=== PATIENT | female | born 1970 | race Caucasian/White ===

== ENCOUNTER 2017-12-01 17:04 | Emergency (ER) | payer BC ==
[2017-12-01] MEDS ORDERED: Sodium Chloride 0.9% 2.5 ML Syringe FLUSH PRN (17:41)
[2017-12-01] MEDS ORDERED: Ketorolac 30 MG/ML SDV IVPUSH ONE (17:41)
[2017-12-01] MEDS ORDERED: Sodium Chloride 0.9% 1,000 ML IV ONE (17:41)
[2017-12-01] MEDS ORDERED: Sodium Chloride 0.9% 10 ML Syringe FLUSH PRN (17:41)
[2017-12-01] MEDS ORDERED: Ondansetron 4 MG/2 ML SDV IVPUSH ONE (17:42)
--- NOTE | 2017-12-01 17:48 | EDM.PDOC ---
<Jesi Chaudhari - Last Filed: 12/01/17 18:50> ED HPI GENERAL MEDICAL PROBLEM - General Chief Complaint: Flank Pain Stated Complaint: POSSIBLE KIDNEY INFECTION Time Seen by Provider: 12/01/17 17:39 - History of Present Illness INITIAL COMMENTS - FREE TEXT/NARRATIVE: HISTORY AND PHYSICAL: History of present illness: The patient is a 46-year-old female who is a diabetic and has been working with Dr. Zabala at [facility] for better control of her diabetes and has a history of UTIs/kidney infections and presents with similar symptoms. She has had frequency but no dysuria or hematuria and has some right-sided flank pain which radiates to the right mid abdomen that started 48 hours ago. The patient has had chills but no fevers and nausea but no vomiting. She has had no diarrhea and denies as she has had a tubal ligation. The patient states that all these symptoms are similar to her prior urinary tract infections but she was concerned because the flank pain is somewhat new. Everything started gradually and she has not had a kidney stone in her past. She has no right lower abdominal pain and no right upper abdominal pain and has had no recent trauma. She has not taken anything today for the discomfort. Review of systems: As per history of present illness and below otherwise all systems reviewed and negative. Past medical history: As per history of present illness and as reviewed below otherwise noncontributory. Surgical history: As per history of present illness and as reviewed below otherwise noncontributory. Social history: No reported history of drug or alcohol abuse. Family history: As per history of present illness and as reviewed below otherwise noncontributory. Physical exam: General: Well-developed well-nourished female who is nontoxic and vital signs of been reviewed by me. HEENT: Atraumatic, normocephalic, negative for conjunctival pallor or scleral icterus, mucous membranes moist, throat clear, neck supple, nontender, trachea midline. Lungs: Clear to auscultation, breath sounds equal bilaterally, chest nontender. Heart: S1S2, regular rhythm slightly tachycardic rate of my evaluation, negative for clicks, rubs, or JVD. Abdomen: Soft, nondistended, nontender. On deep palpation I am unable to reproduce the pain and there is no rebound or guarding Negative for masses or hepatosplenomegaly. Negative for costovertebral tenderness. Pelvis: Stable nontender. Genitourinary: Deferred. Rectal: Deferred. Extremities: Atraumatic, negative for cords or calf pain. Neurovascular unremarkable. Neuro: Awake, alert, oriented. Cranial nerves II through XII unremarkable. Cerebellum unremarkable. Motor and sensory unremarkable throughout. Exam nonfocal. Diagnostics: UA urine culture CBC CMP lactic acid T scan of the abdomen and pelvis Therapeutics: IV fluids Zofran Toradol Patient states that after the medication she has no nausea and pain is much improved. She is aware that the UA does not indicate a UTI and that her white cell count is normal. We are currently awaiting the CMP results of but I will do a CT scan of the abdomen and pelvis to evaluate any other kidney issues kidney stones or gallbladder problems. I will endorse this case to Dr. Faust at 7 PM to follow-up these testing results and disposition the patient Repeat blood pressure is 126/70 and heart rate is 93 at the time of this last dictation to significantly improved from her presentation. Impression: Urinary frequency and right flank pain stable Definitive disposition and diagnosis as appropriate pending reevaluation and review of above. Right flank pain Pain Score (Numeric/FACES): 6 - Related Data Allergies Allergy/AdvReac Type Severity Reaction Status Date / Time No Known Allergies Allergy Verified 12/01/17 17:42 Home Meds: Home Meds Lisinopril 5 mg PO DAILY 11/13/14 [History] Sertraline [Zoloft] 100 mg PO DAILY 11/13/14 [History] amLODIPine [Norvasc] 7.5 mg PO DAILY 11/13/14 [History] atorvaSTATin [Lipitor] 20 mg PO ONETIME 11/13/14 [History] metFORMIN [Glucophage] 500 mg PO BIDMEALS 11/13/14 [History] Social & Family History - Tobacco Use Smoking Status *Q: Never Smoker Second Hand Smoke Exposure: No - Recreational Drug Use Recreational Drug Use: No ED ROS GENERAL - Review of Systems Review Of Systems: ROS reveals no pertinent complaints other than HPI. ED EXAM, GENERAL - Physical Exam Exam: See Below (See dictation) Course - Vital Signs Last Recorded V/S: Last Vital Signs Temp 98.8 F 12/01/17 17:43 Pulse 93 12/01/17 18:50 Resp 16 04/22/18 18:50 BP 126/70 12/01/17 18:50 Pulse Ox 98 12/01/17 18:50 - Orders/Labs/Meds Orders: Active Orders 24 hr Category Date Time Status Abdomen Pelvis wo Cont [CT] Stat Exams 12/01/17 18:44 Taken CULTURE URINE [RM] Stat Lab 12/01/17 17:32 Received UA W/MICROSCOPIC [URIN] Stat Lab 12/01/17 17:32 Ordered Sodium Chloride 0.9% [Saline Flush] Med 12/01/17 17:41 Active 10 ml FLUSH ASDIRECTED PRN Sodium Chloride 0.9% [Saline Flush] Med 12/01/17 17:41 Active 2.5 ml FLUSH ASDIRECTED PRN Saline Lock Insert [OM.PC] Stat Oth 12/01/17 17:41 Ordered Medication Orders Sodium Chloride (Saline Flush) 10 ml FLUSH ASDIRECTED PRN PRN Reason: Keep Vein Open Sodium Chloride (Saline Flush) 2.5 ml FLUSH ASDIRECTED PRN PRN Reason: Keep Vein Open Labs: Laboratory Tests 12/01/17 12/01/17 12/01/17 Range/Units 17:32 18:05 18:05 WBC 9.38 (4.0-11.0) K/uL RBC 4.49 (4.30-5.90) M/uL Hgb 10.8 L (12.0-16.0) g/dL Hct 33.7 L (36.0-46.0) % MCV 75.1 L (80.0-98.0) fL MCH 24.1 L (27.0-32.0) pg MCHC 32.0 (31.0-37.0) g/dL RDW Std Deviation 46.3 (28.0-62.0) fl RDW Coeff of [place]ortun[place] 17 H (11.0-15.0) % Plt Count 369 (150-400) K/uL MPV 9.30 (7.40-12.00) fL Neut % (Auto) 90.6 H (48.0-80.0) % Lymph % (Auto) 4.6 L (16.0-40.0) % [place] % (Auto) 2.9 (0.0-15.0) % Eos % (Auto) 1.8 (0.0-7.0) % Baso % (Auto) 0.1 (0.0-1.5) % Neut # (Auto) 8.5 H (1.4-5.7) K/uL Lymph # (Auto) 0.4 L (0.6-2.4) K/uL [place] # (Auto) 0.3 (0.0-0.8) K/uL Eos # (Auto) 0.2 (0.0-0.7) K/uL Baso # (Auto) 0.0 (0.0-0.1) K/uL Nucleated RBC % 0.0 /100WBC Nucleated RBCs # 0 K/uL Lactate 0.9 (0.20-2.00) mmol/L Sodium (136-145) mmol/L Potassium (3.5-5.1) mmol/L Chloride (98-107) mmol/L Carbon Dioxide (21.0-32.0) mmol/L BUN (7.0-18.0) mg/dL Creatinine (0.6-1.0) mg/dL Est Cr Clr Drug Dosing mL/min Estimated GFR (MDRD) ml/min Glucose (74-106) mg/dL Calcium (8.5-10.1) mg/dL Total Bilirubin (0.2-1.0) mg/dL AST (15-37) IU/L ALT (14-63) IU/L Alkaline Phosphatase (46-116) U/L Total Protein (6.4-8.2) g/dL Albumin (3.4-5.0) g/dL Globulin (2.0-3.5) g/dL Albumin/Globulin Ratio (1.3-2.8) Urine Color YELLOW Urine Appearance HAZY Urine pH 6.0 (5.0-8.0) Ur Specific [place] <= 1.005 (1.001-1.035) Urine Protein 30 (NEGATIVE) mg/dL Urine Glucose (UA) NEGATIVE (NEGATIVE) mg/dL Urine Ketones NEGATIVE (NEGATIVE) mg/dL Urine Occult Blood SMALL H (NEGATIVE) Urine Nitrite NEGATIVE (NEGATIVE) Urine Bilirubin NEGATIVE (NEGATIVE) Urine Urobilinogen 0.2 (<2.0) EU/dL Ur Leukocyte Esterase NEGATIVE (NEGATIVE) Urine RBC 0-2 (0-2/HPF) Urine WBC 0-2 (0-5/HPF) Ur Epithelial Cells FEW (NONE-FEW) Urine Bacteria FEW (NEGATIVE) 12/01/17 Range/Units 18:05 WBC (4.0-11.0) K/uL RBC (4.30-5.90) M/uL Hgb (12.0-16.0) g/dL Hct (36.0-46.0) % MCV (80.0-98.0) fL MCH (27.0-32.0) pg MCHC (31.0-37.0) g/dL RDW Std Deviation (28.0-62.0) fl RDW Coeff of [place] (11.0-15.0) % Plt Count (150-400) K/uL MPV (7.40-12.00) fL Neut % (Auto) (48.0-80.0) % Lymph % (Auto) (16.0-40.0) % [place] % (Auto) (0.0-15.0) % Eos % (Auto) (0.0-7.0) % Baso % (Auto) (0.0-1.5) % Neut # (Auto) (1.4-5.7) K/uL Lymph # (Auto) (0.6-2.4) K/uL [place] # (Auto) (0.0-0.8) K/uL Eos # (Auto) (0.0-0.7) K/uL Baso # (Auto) (0.0-0.1) K/uL Nucleated RBC % /100WBC Nucleated RBCs # K/uL Lactate (0.20-2.00) mmol/L Sodium 137 (136-145) mmol/L Potassium 3.3 L (3.5-5.1) mmol/L Chloride 102 (98-107) mmol/L Carbon Dioxide 21.3 (21.0-32.0) mmol/L BUN 10 (7.0-18.0) mg/dL Creatinine 0.6 (0.6-1.0) mg/dL Est Cr Clr Drug Dosing 86.53 mL/min Estimated GFR (MDRD) > 60.0 ml/min Glucose 147 H (74-106) mg/dL Calcium 8.6 (8.5-10.1) mg/dL Total Bilirubin 0.3 (0.2-1.0) mg/dL AST 15 (15-37) IU/L ALT 27 (14-63) IU/L Alkaline Phosphatase 62 (46-116) U/L Total Protein 7.8 (6.4-8.2) g/dL Albumin 3.3 L (3.4-5.0) g/dL Globulin 4.5 H (2.0-3.5) g/dL Albumin/Globulin Ratio 0.7 L (1.3-2.8) Urine Color Urine Appearance Urine pH (5.0-8.0) Ur Specific [place] (1.001-1.035) Urine Protein (NEGATIVE) mg/dL Urine Glucose (UA) (NEGATIVE) mg/dL Urine Ketones (NEGATIVE) mg/dL Urine Occult Blood (NEGATIVE) Urine Nitrite (NEGATIVE) Urine Bilirubin (NEGATIVE) Urine Urobilinogen (<2.0) EU/dL Ur Leukocyte Esterase (NEGATIVE) Urine RBC (0-2/HPF) Urine WBC (0-5/HPF) Ur Epithelial Cells (NONE-FEW) Urine Bacteria (NEGATIVE) Meds: Medications Generic Name Dose Route Start Last Admin Trade Name Freq PRN Reason Stop Dose Admin Sodium Chloride 10 ml 12/01/17 17:41 Saline Flush FLUSH ASDIRECTED PRN Keep Vein Open Sodium Chloride 2.5 ml 12/01/17 17:41 Saline Flush FLUSH ASDIRECTED PRN Keep Vein Open Discontinued Medications Generic Name Dose Route Start Last Admin Trade Name Freq PRN Reason Stop Dose Admin Sodium Chloride 1,000 mls @ 999 mls/hr 12/01/17 17:41 12/01/17 18:27 Normal Saline IV 12/01/17 18:41 999 mls/hr STAT ONE Administration Ketorolac Tromethamine 30 mg 12/01/17 17:41 12/01/17 18:33 Toradol IVPUSH 12/01/17 17:42 30 mg ONETIME ONE Administration Ondansetron HCl 4 mg 12/01/17 17:42 12/01/17 18:28 Zofran IVPUSH 12/01/17 17:43 4 mg ONETIME ONE Administration Departure - Departure Disposition: Home, Self-Care 01 Clinical Impression: UTI, Urinary tract infectious disease - Discharge Information Referrals: Olman Zabala MD [Primary Care Provider] - Forms: ED Department Discharge Additional Instructions: The following information is given to patients seen in the emergency department who are being discharged to home. This information is to outline your options for follow-up care. We provide all patients seen in our emergency department with a follow-up referral. The need for follow-up, as well as the timing and circumstances, are variable depending upon the specifics of your emergency department visit. If you don't have a primary care physician on staff, we will provide you with a referral. We always advise you to contact your personal physician following an emergency department visit to inform them of the circumstance of the visit and for follow-up with them and/or the need for any referrals to a consulting specialist. The emergency department will also refer you to a specialist when appropriate. This referral assures that you have the opportunity for follow-up care with a specialist. All of these measure are taken in an effort to provide you with optimal care, which includes your follow-up. Under all circumstances we always encourage you to contact your private physician who remains a resource for coordinating your care. When calling for follow-up care, please make the office aware that this follow-up is from your recent emergency room visit. If for any reason you are refused follow-up, please contact the [facility] emergency department at and asked to speak to the emergency department charge nurse. <Héctor Faust - Last Filed: 12/01/17 20:37> ED HPI GENERAL MEDICAL PROBLEM - History of Present Illness INITIAL COMMENTS - FREE TEXT/NARRATIVE: I've seen and examined the patient and agree with the above Following CTFor Dr. Yin in no acute findings patient does have blood in urine and right flank pain consistent with a clinical mild pyelonephritis Symptoms for the patient are consistent with previous UTI she does have hematuria and urine cultures pending I'm going to start antibiotic medicationClinically and follow the urine culture results Toradol has significantly improved pain Gen. no acute distress nontoxic appearing HEENT grossly within normal limits Chest clear CV regular abdomen soft tender on deep patella palpation on the right, no guarding or rebound kidney punch is slightly positive on the right bowel sounds present in all 4 quadrants Extremities full range of motion strength 5 out of 5 no edema [employer] alert nonfocal Diagnostics CT abdomen pelvis Lab as below Therapeutics Levaquin 500 mg by mouth now been daily #7 Impression Clinical UTI possibly mild pyelonephritis Chronic history of baseline Definitive disposition and diagnosis as appropriate pending reevaluation and review of above Departure - Departure Time of Disposition: 20:37 Condition: Good
[2017-12-01 18:44] LABS: CHLORIDE,CL 102 mmol/L (98-107); SODIUM,NA 137 mmol/L (136-145)
[2017-12-01] MEDS ORDERED: Levofloxacin 500 MG Tab PO STA (20:39)
[2017-12-01 21:02] VITALS: BP 132/76
--- NOTE | 2017-12-02 15:27 | CT ---
EXAM DATE: 12/01/17 PATIENT'S AGE: 46 Patient: NANCY DE SANTIAGO Facility: [place], [place] Site . Site : [id number] Study: CT Abdomen/Pelvis [id number] 7:56:12 PM Ordering Physician: Watson Dennison Final Report: INDICATION : Abdominal pain. TECHNIQUE : CT scan of the abdomen and pelvis. NO IV CONTRAST FINDINGS : No abdominal or pelvic mass, ascites, or adenopathy. Small hiatal hernia. Normal caliber appendix with no surrounding periappendiceal fat stranding. No obstruction. Liver, spleen, adrenal glands and pancreas unremarkable. No calcified gallstones. Kidneys are normal size and position. No renal calculi. No hydronephrosis. Bladder is unremarkable. The uterus is retroflexed and is normal in size. Lung bases are clear. No suspicious skeletal lesions. L5-S1 lumbar disc degeneration. IMPRESSION : 1. No acute findings. 2. Hiatal hernia. 3. Lumbar disc degeneration. Please note that all CT scans at this facility use dose modulation, iterative reconstruction, and/or weight-based dosing when appropriate to reduce radiation dose to as low as reasonably achievable. Dictated by Adama Mancuso MD @ Dec 01 2017 8:13PM (Electronic Signature) Report Signed by Proxy. FLOR
== END 2017-12-01 20:57 | disposition home or self-care (01) ==
LOC: MW.ED 17:04
DX: N39.0 Urinary tract infection, site not specified (principal); E11.9 Type 2 diabetes mellitus without complications; Z79.899 Other long term (current) drug therapy; Z79.84 Long term (current) use of oral hypoglycemic drugs
CPT/HCPCS: 36415; 74176; 80053; 81001; 83605; 85025; 87086; 96361; 96374; 96375; 99284; A9270; J1885; J2405; J7040

== ENCOUNTER 2018-01-04 14:06 | Emergency (ER) | payer BC ==
[2018-01-04] MEDS ORDERED: Sodium Chloride 0.9% 10 ML Syringe FLUSH PRN (14:49)
[2018-01-04] MEDS ORDERED: Sodium Chloride 0.9% 1,000 ML IV ONE (14:49)
[2018-01-04] MEDS ORDERED: Ondansetron 4 MG/2 ML SDV IVPUSH ONE (14:49)
[2018-01-04] MEDS ORDERED: Sodium Chloride 0.9% 2.5 ML Syringe FLUSH PRN (14:49)
--- NOTE | 2018-01-04 15:01 | EDM.PDOC ---
ED HPI GENERAL MEDICAL PROBLEM - General Chief Complaint: Abdominal Pain Stated Complaint: ABDOMINAL PAIN Time Seen by Provider: 01/04/18 14:55 Source of Information: Reports: Patient History Limitations: Reports: No Limitations - History of Present Illness INITIAL COMMENTS - FREE TEXT/NARRATIVE: HISTORY AND PHYSICAL: []47-year-old female presenting with nausea and diarrhea for the last 2-3 days History of Present Illness: []She is diabetic type II i She has recently started Victoza Patient has an Achilles injury and has a Cam Walker boot on her left She reports that she is going on a medical mission January 11 to [facility] Denies any cough, cold, vomiting, headaches Review of Systems: As per history of present illness and below otherwise all systems reviewed and negative. Past medical history: As per history of present illness and as reviewed below otherwise noncontributory. Surgical history: As per history of present illness and as reviewed below otherwise noncontributory. Social history: No reported history of drug or alcohol abuse. Family history: As per history of present illness and as reviewed below otherwise noncontributory. Physical exam: Alert and oriented female answering questions in full sentences without any shortness of breath. HEENT: Atraumatic, normocehpalic, pupils reactive, negative for conjunctival pallor or scleral icterus, mucous membranes dry, throat clear, neck supple, nontender, trachea midline. Lungs: Clear to auscultation, breath sounds equal bilaterally, chest non tender. Heart: S1S2, regular, negative for clicks, rubs, or JVD. Abdomen: Soft, nondistended, tender. Negative for masses or hepatossplenmegaly. Negative for costovertebral tenderness. Pelvis: Stable nontender. Genitourinary: Deferred. Rectal: Deferred Extremities: Atraumatic, negative for cords or calf pain. Neurovascular unremarkable. Neuro: Awake, alert, oriented. Cranial nerves II through XII unremarkable. Cerebellum unremarkable. Motor and sensory unremarkable throughout. Exam nonfocal. Diagnostics: []cbc, cmp, amylase, lipase, abd flat & upright Therapeutics: []IV fluid Impression: []Gas pain Plan: []Discharged home Fluid intake medications as previously ordered Cephalexin as directed Follow-up with your primary care provider Return to the emergency department as directed and discussed Definitive disposition and diagnosis as appropriate pending reevaluation and review of above. Onset: Gradual Duration: Day(s): (2-3) Location: Reports: Abdomen Quality: Reports: Ache Severity: Moderate Improves with: Reports: None Worsens with: Reports: None Middle Abdomen Pain Score (Numeric/FACES): 5 - Related Data Allergies Allergy/AdvReac Type Severity Reaction Status Date / Time No Known Allergies Allergy Verified 01/04/18 14:42 Home Meds: Home Meds Lisinopril 20 mg PO DAILY 11/13/14 [History] Sertraline [Zoloft] 100 mg PO DAILY 11/13/14 [History] amLODIPine [Norvasc] 5 mg PO DAILY 11/13/14 [History] atorvaSTATin [Lipitor] 20 mg PO ONETIME 11/13/14 [History] metFORMIN [Glucophage] 1,000 mg PO BID 11/13/14 [History] Ciprofloxacin HCl [Cipro] 500 mg PO Q12HR #10 tablet 01/04/18 [Rx] Iron Polysaccharide Complex [Polysaccharide Iron 150] 150 mg PO ASDIRECTED 01/04 [History] Liraglutide [Victoza] 1.2 mg SUBCUT DAILY 01/04/18 [History] Past Medical History HEENT History: Reports: Impaired Vision Cardiovascular History: Reports: Hypertension Genitourinary History: Reports: Other (See Below) Other Genitourinary History: kidney infection 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: Psychiatric History: Reports: Depression Endocrine/Metabolic History: Reports: Diabetes, Type II Hematologic History: Reports: Anemia - Infectious Disease History Infectious Disease History: Reports: Chicken Pox - Past Surgical History HEENT Surgical History: Reports: Other (See Below) Other HEENT Surgeries/Procedures: eyelid surgery Female Surgical History: Reports: Section, Tubal Ligation Social & Family History - Family History Family Medical History: Noncontributory - Tobacco Use Smoking Status *Q: Never Smoker - Caffeine Use Caffeine Use: Reports: Coffee, Soda - Recreational Drug Use Recreational Drug Use: No ED ROS GENERAL - Review of Systems Review Of Systems: ROS reveals no pertinent complaints other than HPI. ED EXAM, GI/ABD - Physical Exam Exam: See Below (See dictation) Course - Vital Signs Last Recorded V/S: Last Vital Signs Temp 36.6 C 01/04/18 14:39 Pulse 111 H 01/04/18 14:39 Resp 16 01/04/18 14:39 BP 139/86 01/04/18 14:39 Pulse Ox 95 01/04/18 14:39 - Orders/Labs/Meds Orders: Active Orders 24 hr Category Date Time Status Abdomen 2V AP Flat Upright [CR] Stat Exams 01/04/18 15:23 Taken UA W/MICROSCOPIC [URIN] Stat Lab 01/04/18 16:01 Ordered Sodium Chloride 0.9% [Saline Flush] Med 01/04/18 14:49 Active 10 ml FLUSH ASDIRECTED PRN Sodium Chloride 0.9% [Saline Flush] Med 01/04/18 14:49 Active 2.5 ml FLUSH ASDIRECTED PRN Saline Lock Insert [OM.PC] Stat Oth 01/04/18 14:48 Ordered Medication Orders Sodium Chloride (Saline Flush) 10 ml FLUSH ASDIRECTED PRN PRN Reason: Keep Vein Open Last Admin: 01/04/18 15:05 Dose: 10 ml Sodium Chloride (Saline Flush) 2.5 ml FLUSH ASDIRECTED PRN PRN Reason: Keep Vein Open Last Admin: 01/04/18 15:04 Dose: 2.5 ml Labs: Laboratory Tests 01/04/18 01/04/18 01/04/18 Range/Units 14:57 14:57 14:57 WBC 12.95 H (4.0-11.0) K/uL RBC 5.28 (4.30-5.90) M/uL Hgb 13.0 (12.0-16.0) g/dL Hct 40.0 (36.0-46.0) % MCV 75.8 L (80.0-98.0) fL MCH 24.6 L (27.0-32.0) pg MCHC 32.5 (31.0-37.0) g/dL RDW Std Deviation 47.2 (28.0-62.0) fl RDW Coeff of [place] 17 H (11.0-15.0) % Plt Count 314 (150-400) K/uL MPV 10.00 (7.40-12.00) fL Neut % (Auto) 79.5 (48.0-80.0) % Lymph % (Auto) 11.0 L (16.0-40.0) % Kerr % (Auto) 5.8 (0.0-15.0) % Eos % (Auto) 3.5 (0.0-7.0) % Baso % (Auto) 0.2 (0.0-1.5) % Neut # (Auto) 10.3 H (1.4-5.7) K/uL Lymph # (Auto) 1.4 (0.6-2.4) K/uL Kerr # (Auto) 0.8 (0.0-0.8) K/uL Eos # (Auto) 0.5 (0.0-0.7) K/uL Baso # (Auto) 0.0 (0.0-0.1) K/uL Nucleated RBC % 0.0 /100WBC Nucleated RBCs # 0 K/uL Sodium 138 (136-145) mmol/L Potassium 3.4 L (3.5-5.1) mmol/L Chloride 103 (98-107) mmol/L Carbon Dioxide 22.2 (21.0-32.0) mmol/L BUN 7 (7.0-18.0) mg/dL Creatinine 0.7 (0.6-1.0) mg/dL Est Cr Clr Drug Dosing 73.36 mL/min Estimated GFR (MDRD) > 60.0 ml/min Glucose 149 H (74-106) mg/dL Calcium 8.4 L (8.5-10.1) mg/dL Total Bilirubin 0.3 (0.2-1.0) mg/dL AST 15 (15-37) IU/L ALT 25 (14-63) IU/L Alkaline Phosphatase 79 (46-116) U/L Total Protein 7.6 (6.4-8.2) g/dL Albumin 3.4 (3.4-5.0) g/dL Globulin 4.2 H (2.0-3.5) g/dL Albumin/Globulin Ratio 0.8 L (1.3-2.8) Amylase 25 (25-115) U/L Lipase 90 (73-393) U/L Urine Color Urine Appearance Urine pH (5.0-8.0) Ur Specific [place] (1.001-1.035) Urine Protein (NEGATIVE) mg/dL Urine Glucose (UA) (NEGATIVE) mg/dL Urine Ketones (NEGATIVE) mg/dL Urine Occult Blood (NEGATIVE) Urine Nitrite (NEGATIVE) Urine Bilirubin (NEGATIVE) Urine Ictotest Urine Urobilinogen (<2.0) EU/dL Ur Leukocyte Esterase (NEGATIVE) Urine RBC (0-2/HPF) Urine WBC (0-5/HPF) Ur Epithelial Cells (NONE-FEW) Urine Bacteria (NEGATIVE) 01/04/18 Range/Units 16:01 WBC (4.0-11.0) K/uL RBC (4.30-5.90) M/uL Hgb (12.0-16.0) g/dL Hct (36.0-46.0) % MCV (80.0-98.0) fL MCH (27.0-32.0) pg MCHC (31.0-37.0) g/dL RDW Std Deviation (28.0-62.0) fl RDW Coeff of [place] (11.0-15.0) % Plt Count (150-400) K/uL MPV (7.40-12.00) fL Neut % (Auto) (48.0-80.0) % Lymph % (Auto) (16.0-40.0) % Kerr % (Auto) (0.0-15.0) % Eos % (Auto) (0.0-7.0) % Baso % (Auto) (0.0-1.5) % Neut # (Auto) (1.4-5.7) K/uL Lymph # (Auto) (0.6-2.4) K/uL Kerr # (Auto) (0.0-0.8) K/uL Eos # (Auto) (0.0-0.7) K/uL Baso # (Auto) (0.0-0.1) K/uL Nucleated RBC % /100WBC Nucleated RBCs # K/uL Sodium (136-145) mmol/L Potassium (3.5-5.1) mmol/L Chloride (98-107) mmol/L Carbon Dioxide (21.0-32.0) mmol/L BUN (7.0-18.0) mg/dL Creatinine (0.6-1.0) mg/dL Est Cr Clr Drug Dosing mL/min Estimated GFR (MDRD) ml/min Glucose (74-106) mg/dL Calcium (8.5-10.1) mg/dL Total Bilirubin (0.2-1.0) mg/dL AST (15-37) IU/L ALT (14-63) IU/L Alkaline Phosphatase (46-116) U/L Total Protein (6.4-8.2) g/dL Albumin (3.4-5.0) g/dL Globulin (2.0-3.5) g/dL Albumin/Globulin Ratio (1.3-2.8) Amylase (25-115) U/L Lipase (73-393) U/L Urine Color YELLOW Urine Appearance CLEAR Urine pH 6.0 (5.0-8.0) Ur Specific [place] >= 1.030 (1.001-1.035) Urine Protein 100 (NEGATIVE) mg/dL Urine Glucose (UA) NEGATIVE (NEGATIVE) mg/dL Urine Ketones 15 H (NEGATIVE) mg/dL Urine Occult Blood LARGE H (NEGATIVE) Urine Nitrite NEGATIVE (NEGATIVE) Urine Bilirubin SMALL H (NEGATIVE) Urine Ictotest Urine Urobilinogen 0.2 (<2.0) EU/dL Ur Leukocyte Esterase NEGATIVE (NEGATIVE) Urine RBC 85-90 (0-2/HPF) Urine WBC 0-1 (0-5/HPF) Ur Epithelial Cells MANY (NONE-FEW) Urine Bacteria FEW (NEGATIVE) Meds: Medications Generic Name Dose Route Start Last Admin Trade Name Freq PRN Reason Stop Dose Admin Sodium Chloride 10 ml 01/04/18 14:49 01/04/18 15:05 Saline Flush FLUSH 10 ml ASDIRECTED PRN Administration Keep Vein Open Sodium Chloride 2.5 ml 01/04/18 14:49 01/04/18 15:04 Saline Flush FLUSH 2.5 ml ASDIRECTED PRN Administration Keep Vein Open Discontinued Medications Generic Name Dose Route Start Last Admin Trade Name Freq PRN Reason Stop Dose Admin Sodium Chloride 1,000 mls @ 999 mls/hr 01/04/18 14:49 01/04/18 15:02 Normal Saline IV 01/04/18 15:49 999 mls/hr STAT ONE Administration Ondansetron HCl 4 mg 01/04/18 14:49 01/04/18 15:02 Zofran IVPUSH 01/04/18 14:50 4 mg ONETIME ONE Administration Departure - Departure Time of Disposition: 16:17 Disposition: Home, Self-Care 01 Condition: Good Clinical Impression: Gas pain Abdominal pain Qualifiers: Abdominal location: upper abdomen, unspecified Qualified Code(s): R10.10 - Upper abdominal pain, unspecified - Discharge Information Prescriptions: Ciprofloxacin HCl [Cipro] 500 mg PO Q12HR #10 tablet Referrals: PCP,None [Primary Care Provider] - Forms: ED Department Discharge Additional Instructions: The following information is given to patients seen in the emergency department who are being discharged to home. This information is to outline your options for follow-up care. We provide all patients seen in our emergency department with a follow-up referral. The need for follow-up, as well as the timing and circumstances, are variable depending upon the specifics of your emergency department visit. If you don't have a primary care physician on staff, we will provide you with a referral. We always advise you to contact your personal physician following an emergency department visit to inform them of the circumstance of the visit and for follow-up with them and/or the need for any referrals to a consulting specialist. The emergency department will also refer you to a specialist when appropriate. This referral assures that you have the opportunity for followup care with a specialist. All of these measure are taken in an effort to provide you with optimal care, which includes your followup. Under all circumstances we always encourage you to contact your private physician who remains a resource for coordinating your care. When calling for followup care, please make the office aware that this follow-up is from your recent emergency room visit. If for any reason you are refused follow-up, please contact the [facility] emergency department at and asked to speak to the emergency department charge nurse. Simethicone [id number] for your gas pain Immodium for diarrhea Follow-up with primary care provider Return to the emergency department as directed and discussed - My Orders Last 24 Hours: My Active Orders 01/04/18 14:48 Saline Lock Insert [OM.PC] Stat 01/04/18 14:49 Sodium Chloride 0.9% [Saline Flush] 10 ml FLUSH ASDIRECTED PRN Sodium Chloride 0.9% [Saline Flush] 2.5 ml FLUSH ASDIRECTED PRN 01/04/18 15:23 Abdomen 2V AP Flat Upright [CR] Stat 01/04/18 16:01 UA W/MICROSCOPIC [URIN] Stat - Assessment/Plan Last 24 Hours: My Active Orders 01/04/18 14:48 Saline Lock Insert [OM.PC] Stat 01/04/18 14:49 Sodium Chloride 0.9% [Saline Flush] 10 ml FLUSH ASDIRECTED PRN Sodium Chloride 0.9% [Saline Flush] 2.5 ml FLUSH ASDIRECTED PRN 01/04/18 15:23 Abdomen 2V AP Flat Upright [CR] Stat 01/04/18 16:01 UA W/MICROSCOPIC [URIN] Stat
[2018-01-04 15:27] LABS: CHLORIDE,CL 103 mmol/L (98-107); SODIUM,NA 138 mmol/L (136-145)
[2018-01-04] MEDS ORDERED: Simethicone 80 MG Tab.Chew PO ONE (16:20)
[2018-01-04 16:38] VITALS: BP 139/78
--- NOTE | 2018-01-06 12:47 | CR ---
EXAM DATE: 01/04/18 PATIENT'S AGE: 47 Patient: NANCY DE SANTIAGO Facility: [place], [place] Site . Site : [id number] Study: XRay Abdomen [id number] 3:45:43 PM Ordering Physician: Doctor Brito Final Report: INDICATION: Abdominal pain. Nausea. Vomiting. Diarrhea. TECHNIQUE: Supine and upright views of the abdomen and pelvis. FINDINGS: No free air on the upright image. Scattered gas and minimal stool throughout the colon and rectum. There is a paucity of small bowel gas. Fluid-filled small bowel loops can be overlooked on plain radiography. Calcified pelvic phleboliths. IMPRESSION: Nonspecific bowel gas pattern. Paucity of small bowel gas. Dictated by Brice Mathews MD @ Jan 04 2018 4:04PM (Electronic Signature) Report Signed by Proxy. FLOR
== END 2018-01-04 16:25 | disposition home or self-care (01) ==
LOC: MW.ED 14:06
DX: R10.10 Upper abdominal pain, unspecified (principal); R14.1 Gas pain; I10 Essential (primary) hypertension; F32.9 Major depressive disorder, single episode, unspecified; E11.9 Type 2 diabetes mellitus without complications; Z79.84 Long term (current) use of oral hypoglycemic drugs; Z79.899 Other long term (current) drug therapy
CPT/HCPCS: 36415; 74019; 80053; 81001; 82150; 83690; 85025; 96361; 96374; 99284; A9270; J2405; J7040; 99283